=== PATIENT | female | born 1995 | race African-American/Black ===

== ENCOUNTER 2017-04-09 04:37 | Emergency (ER) | payer OTHER ==
[~2017-04-09] VITALS: Ht 182.9 cm; Wt 62.6 kg
[~2017-04-09 04:37] MED LIST: AMOXICILLIN875 MG PO; COLACE100 MG PO; KEFLEX500 MG PO; NITROFURANTOIN100 M3 PO; PNV PRENATAL P1 EACH PO; PRENATA CHEWAB1 EACH PO; PRENATAL TABLE1 EAC3 PO; TYLENOL EXTRA500 MG PO; ZOFRAN ODT4 MG PO
[2017-04-09 05:03] LABS: APPEARANCE CLOUDY ((CLEAR)); BILIRUBIN NEGATIVE; BLOOD SMALL; COLOR YELLOW ((YELLOW)); GLUCOSE (STRIP) NEGATIVE; KETONES NEGATIVE; LEUKOCYTES LARGE; NITRITE NEGATIVE; PROTEIN (STRIP) NEGATIVE; SPECIFIC GRAVITY 1.026 (1.000-1.030)
[2017-04-09 05:32] LABS: SOURCE URINE
[2017-04-09 05:40] LABS: BACTERIA RARE /HPF; EPITHELIAL CELLS 2+ /HPF; MUCUS 3+ /LPF; RED BLOOD CELLS 0-5 /HPF (0-5)
[2017-04-09 05:41] LABS: WHITE BLOOD CELLS 40-50 /HPF (0-5)
[2017-04-09 06:32] VITALS: BP 120/72
[2017-04-11 12:39] LABS: CHLAMYDIA TRACHOMATIS NEGATIVE; NEISSERIA GONORRHOEAE POSITIVE
== END 2017-04-09 06:32 | disposition home or self-care (01) ==
LOC: EME 04:37
DX: Z11.3 Encounter for screening for infections with a predominantly sexual mode of transmission (principal)
CPT/HCPCS: 81003; 87491; 87591; 99281; 99284; J0696

== ENCOUNTER 2017-06-01 09:59 | Emergency (ER) | payer OTHER ==
[~2017-06-01] VITALS: Ht 182.9 cm; Wt 68.4 kg
[2017-06-01] MEDS ORDERED: CLEOCIN300 MG PO (10:58)
[2017-06-01] MEDS ORDERED: MOTRIN600 MG PO (10:58)
[2017-06-01 11:15] VITALS: BP 111/61
== END 2017-06-01 11:16 | disposition home or self-care (01) ==
LOC: EME 09:59
DX: N61.1 Abscess of the breast and nipple (principal); F17.200 Nicotine dependence, unspecified, uncomplicated

== ENCOUNTER 2017-08-27 21:40 | Emergency (ER) | payer OTHER ==
[~2017-08-27] VITALS: Ht 182.9 cm; Wt 63.0 kg
[~2017-08-27 21:40] MED LIST changes: +CLEOCIN300 MG PO; +MOTRIN600 MG PO
[2017-08-27 22:14] LABS: SOURCE URINE
[2017-08-27 22:18] LABS: APPEARANCE SL.HAZY ((CLEAR)); BILIRUBIN NEGATIVE; BLOOD NEGATIVE; COLOR YELLOW ((YELLOW)); GLUCOSE (STRIP) NEGATIVE; KETONES NEGATIVE; LEUKOCYTES SMALL; NITRITE NEGATIVE; PROTEIN (STRIP) NEGATIVE; UROBILINOGEN 0.2 MG/DL (0.2-1.0)
[2017-08-27 22:31] LABS: BACTERIA NONE SEEN /HPF; EPITHELIAL CELLS 2+ /HPF; MUCUS TRACE /LPF; RED BLOOD CELLS 0-5 /HPF (0-5); UCUL ADDED? YES; WHITE BLOOD CELLS 20-30 /HPF (0-5)
[2017-08-27 23:26] VITALS: BP 124/92
[2017-08-29 15:20] LABS: CHLAMYDIA TRACHOMATIS NEGATIVE; NEISSERIA GONORRHOEAE POSITIVE
== END 2017-08-27 23:27 | disposition home or self-care (01) ==
LOC: EME 21:40
PROVIDERS: Nurse Practitioner Family
DX: Z20.2 Contact with and (suspected) exposure to infections with a predominantly sexual mode of transmission (principal); Z32.02 Encounter for pregnancy test, result negative
CPT/HCPCS: 81003; 81025; 87086; 87491; 87591; 99281; 99284; J0696